=== PATIENT | female | born 1930 | race Caucasian/White ===

== ENCOUNTER 2019-08-08 07:46 | Day surgery (SDC) | payer MEDICARE ==
[2019-08-08] VITALS (23 sets, daily range): BP systolic 96–158; BP diastolic 45–93
[~2019-08-08] VITALS: Ht 160 cm; Wt 71.5 kg
[2019-08-08] MEDS ORDERED: normal saline 1000ml 1,000 ML IV SCH (08:25)
[2019-08-08] MEDS ORDERED: atropine 0.1mg/ml 10ml syringe IV ONE (08:25)
[2019-08-08] MEDS ORDERED: MIDAZolam 1mg/ml 10ml vial IV ONE (08:25)
[2019-08-08] MEDS ORDERED: fentaNYL/PF 50MCG/1 ML 2ML syringe IV ONE (08:25)
[2019-08-08] MEDS ORDERED: DILT-35 PO (08:35)
[2019-08-08] MEDS ORDERED: FURO-149 PO (08:35)
[2019-08-08] MEDS ORDERED: MULT-1085 PO (08:35)
[2019-08-08] MEDS ORDERED: CALC-1135 PO (08:35)
[2019-08-08] MEDS ORDERED: ACET-812 PO (08:35)
[2019-08-08] MEDS ORDERED: FEBU40TA PO (08:35)
[2019-08-08] MEDS ORDERED: AMIO200T54 PO (08:35)
[2019-08-08] MEDS ORDERED: ATOR40TA PO (08:35)
[2019-08-08] MEDS ORDERED: DULO60CA65 PO (08:35)
[2019-08-08] MEDS ORDERED: LEVO100T78 PO (08:35)
[2019-08-08] MEDS ORDERED: METO25TA6 PO (08:39)
[2019-08-08] MEDS ORDERED: WARF2TAB PO (08:39)
[2019-08-08] MEDS ORDERED: DENO60DI (08:39)
[2019-08-08] MEDS ORDERED: FERR325T28 PO (08:45)
[2019-08-08] MEDS ORDERED: DEXT15DR7 EACHEYE (08:45)
[2019-08-08] MEDS ORDERED: TRAM50TA2 PO (08:45)
[2019-08-08] MEDS ORDERED: RESTASIS (08:45)
[2019-08-08] MEDS ORDERED: OMEG1CAP46 PO (08:45)
[2019-08-08 09:12] LABS: BASOPHILS # (AUTO) 0.1 X10'3 (0-0.2); BASOPHILS % (AUTO) 0.6 % (0-1); EOSINOPHILS # (AUTO) 0.4 X10'3 (0-0.9); EOSINOPHILS % (AUTO) 4.4 % (0-6); HEMATOCRIT 29.4 % (35.0-45.0); HEMOGLOBIN 10.1 g/dl (12.0-16.0); LYMPHOCYTES # (AUTO) 1.3 X10'3 (1.1-4.8); LYMPHOCYTES % (AUTO) 12.4 % (21-51); MEAN CORPUSCULAR HEMOGLOBIN 30.2 PG (27.0-31.0); MEAN CORPUSCULAR HGB CONC 34.4 g/dL (33.0-36.5); MEAN CORPUSCULAR VOLUME 87.9 FL (78-98); MEAN PLATELET VOLUME 8.5 FL (7.4-10.4); MONOCYTES # (AUTO) 0.9 X10'3 (0-0.9); MONOCYTES % (AUTO) 8.4 % (2-12); NEUTROPHILS # (AUTO) 7.6 X10'3 (1.8-7.7); NEUTROPHILS % (AUTO) 74.2 % (42-75); PLATELET COUNT 407 X10'3 (140-440); RED BLOOD COUNT 3.34 X10'6 (4.20-5.60); RED CELL DISTRIBUTION WIDTH 18.3 % (11.5-14.5); WHITE BLOOD COUNT 10.2 X10'3 (4.5-11.0)
[2019-08-08 09:14] LABS: ALBUMIN 3.2 G/DL (3.4-5.0); ANION GAP 5 (8-16); BLOOD UREA NITROGEN 36 MG/DL (7-18); BUN/CREATININE RATIO 16.2 (6.6-38.0); CALCIUM 9.2 MG/DL (8.5-10.1); CHLORIDE 100 MMOL/L (99-107); CREATININE 2.22 MG/DL (0.40-0.90); GLUCOSE 114 MG/DL (70-104); MAGNESIUM 2.4 MG/DL (1.5-2.4); POTASSIUM 3.4 MMOL/L (3.5-5.1); SODIUM 142 MMOL/L (135-145); eGFR 21 ML/MIN
--- NOTE | 2019-08-08 10:38 | NUR ---
bolus 250ml BP 100/50, HR 56, SpO2 97% on 2L. pt denies pain.
--- NOTE | 2019-08-08 11:30 | NUR ---
Pt ate 100% of lunch tray, drank 250ml juice. swallowing adequately
== END 2019-08-08 12:30 | disposition home or self-care (01) ==
LOC: SSTAY O 07:46 → EDSTATUS 09:30 → SSTAY O 12:30
PROVIDERS: ATTEND Internal Medicine Cardiovascular Disease
DX: I48.20 Chronic atrial fibrillation, unspecified (principal); N18.9 Chronic kidney disease, unspecified
CPT/HCPCS: 36415; 80048; 83735; 85025; 85610; 92960; 93005; 93312; J0461; J2250; J3010; J7030

== ENCOUNTER 2019-09-12 10:36 | Day surgery (SDC) | payer MEDICARE ==
[~2019-09-12] VITALS: Ht 160 cm; Wt 70.7 kg
[2019-09-12] VITALS (15 sets, daily range): BP systolic 103–121; BP diastolic 49–69
[~2019-09-12 10:36] MED LIST: ACET-812 PO; AMIO200T62 PO; ATOR40TA PO; CALC-1135 PO; DENO60DI; DEXT15DR7 EACHEYE; DILT-35 PO; DULO60CA65 PO; FEBU40TA PO; FERR325T28 PO; FURO-149 PO; LEVO100T78 PO; METO25TA6 PO; MULT-1085 PO; OMEG1CAP46 PO; RESTASIS; TRAM50TA2 PO; WARF2TAB PO
[2019-09-12] MEDS ORDERED: glycopyrrolate 0.2mg/ml inj IV ONE (11:15)
[2019-09-12] MEDS ORDERED: normal saline 1000ml 1,000 ML IV SCH (11:15)
[2019-09-12] MEDS ORDERED: MIDAZolam 5mg/ml 2ml vial IV ONE (11:15)
[2019-09-12] MEDS ORDERED: atropine 0.1mg/ml 10ml syringe IV ONE (11:15)
[2019-09-12] MEDS ORDERED: fentaNYL/PF 50MCG/1 ML 2ML syringe IV ONE (11:15)
[2019-09-12 12:01] LABS: BASOPHILS % (AUTO) 0.7 % (0-1); EOSINOPHILS # (AUTO) 0.3 X10'3 (0-0.9); EOSINOPHILS % (AUTO) 4.6 % (0-6); HEMATOCRIT 33.9 % (35.0-45.0); HEMOGLOBIN 11.4 g/dl (12.0-16.0); LYMPHOCYTES # (AUTO) 1.4 X10'3 (1.1-4.8); LYMPHOCYTES % (AUTO) 18.7 % (21-51); MEAN CORPUSCULAR HEMOGLOBIN 30.2 PG (27.0-31.0); MEAN CORPUSCULAR HGB CONC 33.6 g/dL (33.0-36.5); MEAN CORPUSCULAR VOLUME 89.8 FL (78-98); MEAN PLATELET VOLUME 8.8 FL (7.4-10.4); MONOCYTES # (AUTO) 0.6 X10'3 (0-0.9); MONOCYTES % (AUTO) 8.1 % (2-12); NEUTROPHILS % (AUTO) 67.9 % (42-75); PLATELET COUNT 335 X10'3 (140-440); RED BLOOD COUNT 3.77 X10'6 (4.20-5.60); RED CELL DISTRIBUTION WIDTH 19.7 % (11.5-14.5); WHITE BLOOD COUNT 7.3 X10'3 (4.5-11.0)
[2019-09-12 12:14] LABS: ANION GAP 9 (8-16); BLOOD UREA NITROGEN 42 MG/DL (7-18); CALCIUM 9.8 MG/DL (8.5-10.1); CHLORIDE 103 MMOL/L (99-107); CREATININE 2.33 MG/DL (0.40-0.90); GLUCOSE 102 MG/DL (70-104); MAGNESIUM 2.3 MG/DL (1.5-2.4); POTASSIUM 4.1 MMOL/L (3.5-5.1); SODIUM 144 MMOL/L (135-145); TOTAL CARBON DIOXIDE 31.9 MMOL/L (24-32); eGFR 20 ML/MIN
[2019-09-12] MEDS ORDERED: EPIN0.3P3 SQ (12:21)
[2019-09-12] MEDS ORDERED: OXYGEN NASALCANN (12:21)
[2019-09-12] MEDS ORDERED: NEOM1OIN8 TOP (12:21)
[2019-09-12] MEDS ORDERED: ASCO500C15 PO (12:21)
[2019-09-12] MEDS ORDERED: POTA8CAP20 PO (12:21)
[2019-09-12] MEDS ORDERED: AMIO400T5 PO (12:21)
[2019-09-13] MEDS ORDERED: pneumococcal 23-VAL P-sac vacc 25 mcg/0.5ml vial IMVAC ONE (10:00)
== END 2019-09-12 15:40 | disposition home or self-care (01) ==
LOC: SSTAY O 10:36
PROVIDERS: ATTEND Internal Medicine Cardiovascular Disease
DX: I48.19 Other persistent atrial fibrillation (principal); Z23 Encounter for immunization; Z95.2 Presence of prosthetic heart valve; N18.9 Chronic kidney disease, unspecified; E78.5 Hyperlipidemia, unspecified; Z86.73 Personal history of transient ischemic attack (TIA), and cerebral infarction without residual deficits
CPT/HCPCS: 36415; 80048; 83735; 85025; 85610; 90732; 92960; G0009; J0461; J2250; J3010; J7030; 93005